=== PATIENT | female | born 1990 | race Caucasian/White ===

== ENCOUNTER → 2018-12-10 | Outpatient (CLI) | payer OTHER ==
[~2018-12-10] MED LIST: PRENTAB9 PO; VITA500C24 PO
--- NOTE | 2018-12-11 02:56 | REP ---
Clinical: Anatomical evaluation. Comparison: None . Findings: Examination demonstrates a single live intrauterine in breech presentation. motion is identified by technologist. Placenta is noted anterior and grade zero without evidence for placenta previa or abruption. Amniotic fluid volume is normal. Cervix measures 3.2 cm in length and appears closed. No evidence for nuchal cord. Gestational age by LMP 19 weeks 1 day with ESTEVAN 05/05/2019 . Gestational age by current measurements 19 weeks 0-day with ESTEVAN 05/06/2019 . FHR equals 139 beats per minute. BPD 4.3 cm 18 weeks 6 days HC 16.0 cm 18 weeks 6 days AC 14.1 cm 19 weeks 3 days FL 2.8 cm it is 18 weeks 4 days HL 2.8 cm 19 weeks 1 day HC/AC ratio 1.14 Estimated weight 270 grams ( 44th percentile). Anatomical assessment demonstrates normal structures including cranium, choroid plexus, cavum, cerebellum/posterior fossa, facial features, lungs, four-chamber heart/left ventricular outflow tract, diaphragm, stomach, cord insertion/three-vessel cord, kidneys/bladder, spine, and extremities. Impression: Single live intrauterine in breech presentation demonstrating appropriate interval growth. While no gross abnormalities are identified, evaluation of the right cardiac ventricular outflow tract is somewhat limited. Electronically Signed by Leroy Munoz MD 12/11/2018 02:47 A
== END ==
LOC: MERGE 14:09 → M RAD 14:09
PROVIDERS: ATTEND Advanced Practice Midwife
DX: Z34.82 Encounter for supervision of other normal pregnancy, second trimester (principal); Z3A.19 19 weeks gestation of pregnancy

== ENCOUNTER → 2019-04-30 | Outpatient (CLI) | payer BC, OTHER ==
[2019-04-30 13:42] LABS: APPEARANCE, URINE CLOUDY (CLEAR); BACTERIA, URINE AUTO 2+ (NEGATIVE); BILIRUBIN, URINE AUTO NEGATIVE (NEGATIVE); BLOOD, URINE BLOOD NEGATIVE (NEGATIVE); COLOR, URINE YELLOW (YELLOW); GLUCOSE, URINE (UA) AUTO NEGATIVE (NEGATIVE); KETONE, URINE AUTO NEGATIVE (NEGATIVE); LEUKOCYTE ESTERASE, URINE AUTO TRACE (NEGATIVE); MUCUS, URINE SMALL (NEGATIVE); NITRITE, URINE AUTO NEGATIVE (NEGATIVE); PROTEIN, URINE AUTO 1+ mg/dL (NEGATIVE); RBC, URINE AUTO 1 /HPF (0-3); SPECIFIC GRAVITY URINE AUTO 1.018 (1.002-1.035); SQUAMOUS EPITHELIAL CELL UR AU 7 /HPF (0-6); UROBILINOGEN, URINE AUTO 0.2 mg/dL (0.0-2.0); WBC, URINE AUTO 7 /HPF (0-3)
== END ==
LOC: M LRY 09:18
DX: Z34.03 Encounter for supervision of normal first pregnancy, third trimester (principal); R10.9 Unspecified abdominal pain; Z3A.00 Weeks of gestation of pregnancy not specified

== ENCOUNTER 2019-05-10 11:54 | Inpatient (IN) | payer OTHER ==
[~2019-05-10] VITALS: Ht 154.9 cm; Wt 74.6 kg
[2019-05-10] VITALS (31 sets, daily range): BP systolic 85–138; BP diastolic 50–89
[2019-05-10] MEDS ORDERED: LACTATED RINGER'S 1000 ML IV STA (12:21)
[2019-05-10] MEDS ORDERED: PENICILLIN G POTASSIUM IV 5 MU in D5W MINI-BAG PLUS 100 ML IV STA (12:21)
[2019-05-10] MEDS ORDERED: VITA500C24 PO (12:28)
[2019-05-10] MEDS ORDERED: PRENTAB9 PO (12:28)
[2019-05-10] MEDS ORDERED: OXYTOCIN DRIP 30 UNITS in IV 1 EA IV SCH (12:30)
[2019-05-10 12:47] LABS: HEMATOCRIT 39.5 % (36.0-47.0); HEMOGLOBIN 12.6 g/dl (12.0-15.5); MEAN CORPUSCULAR HGB CONC 31.9 g/dl (32.0-36.5); PLATELET COUNT, AUTOMATED 139 10^3/uL (150-450); RED BLOOD COUNT 4.34 10^6/uL (4.00-5.40); WHITE BLOOD COUNT 6.2 10^3/uL (4.0-10.0)
[2019-05-10] MEDS: LR 1,000 ML IV SCH ×2 (12:58→16:24)
--- NOTE | 2019-05-10 13:53 | HPEPDOC ---
Obstetrical History & Physical General Date of Admission May 10, 2019 at 11:54 Primary Care Physician: REEMA CHAVIS CNM History of Present Illness Patient is a 28-year-old female who is a at 40.5 weeks with an ESTEVAN of 05/05/19 based off of her LMP and consistent with her first trimester ultrasound. She initiated care in her first trimester with [facility]WP. Her has been uncomplicated. She desires an elective IOL due to latent labor. She rpeorts regular contractions. She denies vaginal bleeding or leaking of fluid. She reports active movement. 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 history Past Medical History Surgical History: Appendectomy, [place] teeth, Other (tympanostomy, umbilical hernia repair) Family History Significant Family History: Cancer (lung cancer and prostate cancer), COPD, Other (arthritis and IBS) Social History Marital Status: Family situation: Spouse/partner home Psychosocial History: Anxiety * Smoker: non-smoker Alcohol: Denies Drugs: denies Abuse Violence Screening Have you been hit/kicked/slapp: No Have you been sexually assault: No Allergies Coded Allergies: nystatin (Verified Allergy, Unknown, 05/10/19) amoxicillin (Verified Adverse Reaction, Mild, DIARRHEA, 05/10/19) clavulanic acid (Verified Adverse Reaction, Mild, DIARRHEA, 05/10/19) Medications Scheduled Ascorbic Acid (Vitamin C) 500 Mg Capsule, 2 CAP PO DAILY No.137/Iron/Folic Acd ( Vitamin Tablet) 1 Each Tablet, 1 TAB PO DAILY Physical Examination Physical Examination GENERAL: Alert and oriented times three. BREAST: . ABDOMEN: Gravid and non-tender to touch. FETUS: Is vertex (VTX) by sterile vaginal examination (SVE), fetus is vertex (VTX) by Hitesh. HEART RATE: Regular rate and rhythm. LUNGS: Clear to auscultation (CTA). EXTREMITIES: No edema. No clonus. Deep tendon reflexes (DTRs) + 2. Vital Signs/I&O Vital Signs Label Value Date Time Patient Temperature 97.9 degrees F 05/10/19 1210 Temperature Source Temporal 05/10/19 1210 Pulse 72 05/10/19 1210 Respiratory Rate 16 bpm 05/10/19 1210 Blood Pressure Assessment 132/78 (96) 05/10/19 1210 Source Automatic Cuff (NIBP) Laboratory Data [facility] Laboratory Tests 2 05/10/19 12:09: Serology Scanned Report Hepatitis B Testing 05/10/19 12:36: Nucleated Red Blood Cells % (auto) 0.0 CBC/BMP Laboratory Tests 05/10/19 12:36 Urine Culture: No Growth Pertinent Laboratoy Data Blood Type: O+ RBC Antibody Screen: Negative HIV: Negative Hepatitis B: Negative Hepatitis C: Negative Rapid Plasma Reagin: Nonreactive Rubella: Immune Chlamydia/Gonorrhea: Negative Group B Streptococcus: Positive Glucose Tolerance Test: 87 Anatomy Ultrasound Ultrasound Date: Jan 21, 2019 Placenta Location: Posterior Normal Anatomy: Yes Placenta Previa: No Vaginal Examination Dilation: 1cm Effacement: 90% Station: 0 Cervical Consistency: Soft Cervical Position: Anterior Presentation: Cephalic presentation Position: Vertex (occiput) Assessment Heart Rate (FHR): 130 Variability: Moderate Accelerations: Positive Decelerations: None Tocometer Contractions: Yes Frequency: regular, other (2-7 minutes) Strength: palpated as moderate Multi-drug resistant Organism: No history of MDRO Assessment/Plan Assessment IUP at 40.5 weeks GBS positive Category I FHR tracing latent labor Plan Admit to labor and delivery. OOB ad mariya. Diet: clears. Group B Streptococcus (GBS) positive. Start antibiotics. Labs and intravenous (IV) per unit protocol. Counseled on Pitocin and dalton bulb for induction of labor. Lactated Ringers (LR): at 125 cc/hr and a Bolus 800 mL prior to epidural. Anticipate cervical change. C-S as appropriate. REEMA CHAVIS CNM May 10, 2019 13:53
[2019-05-10] MEDS: PENICILLIN G POTASSIUM IV 2.5 MU in IV 1 EA IV SCH ×2 (16:34→21:20)
[2019-05-10] MEDS ORDERED: FENTANYL 2MCG/ML ROPIVACAINE 0.2% IN 0.9% NACL 100ML IVBAG As Ordered ONE (16:38)
[2019-05-10] MEDS ORDERED: NALOXONE INJ 0.4 MG/1 ML VIAL (J2310) IV PRN (17:00)
[2019-05-10] MEDS ORDERED: EPIDURAL COMMENT XX SCH (17:00)
[2019-05-10] MEDS ORDERED: REFRIGERATOR IV KEYS XX PRN (17:00)
[2019-05-10] MEDS ORDERED: ONDANSETRON 4MG/2ML VIAL (J2405) IV PRN (17:00)
[2019-05-10] MEDS ORDERED: ePHEDrine SULFATE 25 MG/5 ML(5MG/ML) SYRINGE IV PRN (17:00)
[2019-05-10] MEDS ORDERED: diphenhydrAMINE INJ 50MG/ML VIAL (J1200) IV PRN (17:00)
[2019-05-10] MEDS ORDERED: LACTATED RINGER'S 1000 ML IV PRN (17:00)
[2019-05-10] MEDS ORDERED: EPIDURAL/PCA KEYS XX PRN (17:00)
[2019-05-10] MEDS: FENTANYL/ROPIVACAINE/NACL BAG 100 ML EPIDURAL SCH ×2 (17:12→23:32)
--- NOTE | 2019-05-10 18:49 | IPNPDOC ---
Obstetrical Progress Note Date of Service May 10, 2019 Subjective Patient reports she is comfortable with her epidural. Objective Vital Signs Date Time Temp Pulse Resp B/P (MAP) Pulse Ox O2 Delivery O2 Flow Rate FiO2 05/10/19 16:24 98.0 96 18 113/58 (76) Assessment Heart Rate (FHR): 140 Variability: Moderate Accelerations: Positive Decelerations: None Heart Rate Tracing: Category I Tocometer Contractions: Yes Frequency: regular, other (2-4 minutes) Sterile Vaginal Examination Dilation: 4 cm Effacement (%): 90% Station: 0 Cervical Consistency: Soft (bulging bag of fluid) Cervical Position: Anterior Postion/Presentation: Cephalic presentation Assessment and Plan Age: 28 : 1 Term: 0 Pre-term: 0 Abortions: 0 Livin EGA at Admission: 40.5 Status: Reassuring Group B Streptococcus: Positive Anticipate: Vaginal Delivery Additional Comments Ballard bulb is out. IV Pitocin is at 8 mu/min. Consider AROM in future. REEMA CHAVIS CNM May 10, 2019 18:48
--- NOTE | 2019-05-10 23:23 | IPNPDOC ---
Obstetrical Progress Note Date of Service May 10, 2019 Subjective Patient reports increased pressure. Objective Vital Signs Date Time Temp Pulse Resp B/P (MAP) Pulse Ox O2 Delivery O2 Flow Rate FiO2 05/10/19 22:25 77 129/64 (85) 05/10/19 16:24 98.0 18 Assessment Heart Rate (FHR): 140 Variability: Minimal to moderate Accelerations: Positive Decelerations: None Heart Rate Tracing: Category I Tocometer Contractions: Yes Frequency: regular Sterile Vaginal Examination Dilation: 9 cm Effacement (%): 100% Station: 0 Postion/Presentation: Cephalic presentation Assessment and Plan Age: 28 : 1 Term: 0 Pre-term: 0 Abortions: 0 Livin EGA at Admission: 40.5 Status: Reassuring Group B Streptococcus: Positive Anticipate: Vaginal Delivery Additional Comments IV Pitocin decreased to 4 mu/min. Patient spontaneously ruptured clear fluids at 2235. REEMA CHAVIS CNM May 10, 2019 23:23
[2019-05-11] VITALS (16 sets, daily range): BP systolic 107–128; BP diastolic 55–84
--- NOTE | 2019-05-11 04:01 | IPNPDOC ---
Obstetrical Progress Note Date of Service May 11, 2019 Subjective Patient is pushing well with contractions but reports she is getting very tired. She has been pushing for almost 3.5 hours. Objective Vital Signs Date Time Temp Pulse Resp B/P (MAP) Pulse Ox O2 Delivery O2 Flow Rate FiO2 05/10/19 22:25 77 129/64 (85) 05/10/19 16:24 98.0 18 Assessment Heart Rate (FHR): 150 Variability: Moderate Accelerations: None Decelerations: Variable (with pushing) Tocometer Contractions: Yes Frequency: regular Assessment and Plan Age: 28 : 1 Term: 0 Pre-term: 1 Abortions: 0 Livin Weeks & Days 40.6 weeks Status: Reassuring Group B Streptococcus: Positive Anticipate: Vaginal Delivery Additional Comments Dr. Cooney called to come in for assistance due to prolonged pushing. Moderate amount of caput with pushing. Meconium noted with pushing. Dr. Cooney is aware and is on his way into L&D. REEMA CHAVIS CNM May 11, 2019 04:01
[2019-05-11 05:23] LABS: CORD GAS ABE V -5.6; CORD GAS HCO3 V 19.3 MEQ/L; CORD GAS O2 SAT V 81.6 %; CORD GAS PCO2 V 36.2 mmHg; CORD GAS PH V 7.345 UNITS; CORD GAS PO2 V 42.1 mmHg; CORD GAS SBC V 19.5 MEQ/L; CORD GAS TCO2 V 20.4 MEQ/L
[2019-05-11 05:26] LABS: CORD GAS ABE A -6.7; CORD GAS HCO3 A 20.4 MEQ/L; CORD GAS O2 SAT A 89.8 %; CORD GAS PCO2 A 46.3 mmHg; CORD GAS PH A 7.261 UNITS; CORD GAS PO2 A 53.2 mmHg; CORD GAS SBC A 18.9 MEQ/L; CORD GAS TCO2 A 21.8 MEQ/L
[2019-05-11] MEDS ORDERED: LR 1,000 ML IV SCH (05:32)
[2019-05-11] MEDS ORDERED: OXYTOCIN DRIP 30 UNITS in IV 1 EA IV SCH (05:32)
[2019-05-11] MEDS ORDERED: ACETAMINOPHEN TAB 650MG DOSE (2X325MG) PO PRN (05:45)
[2019-05-11] MEDS ORDERED: MEASLES,MUMPS,RUBELLA VACCINE INJ (MMR-II) (90707) SC SCH (05:45)
[2019-05-11] MEDS ORDERED: PROMETHAZINE 25 MG TAB PO PRN (05:45)
[2019-05-11] MEDS ORDERED: ACETAMINOPHEN 500 MG TAB PO PRN (05:45)
[2019-05-11] MEDS ORDERED: RHOGAM 300 MCG (1500 IU) INJ (J2790) IM SCH (05:45)
[2019-05-11] MEDS ORDERED: IBUPROFEN 600 MG TAB PO PRN (05:45)
[2019-05-11] MEDS ORDERED: DOCUSATE SODIUM 100 MG CAP PO PRN (05:45)
[2019-05-11] MEDS ORDERED: ONDANSETRON 4MG/2ML VIAL (J2405) IV PRN (05:45)
[2019-05-11] MEDS ORDERED: DIBUCAINE 1% OINTMENT 30GM TOP PRN (05:45)
[2019-05-11] MEDS: IBUPROFEN 800 MG TAB PO PRN (08:06)
[2019-05-11] MEDS: PRENATAL VITAMINS CHEWABLE TABLET PO SCH (08:06)
[2019-05-12 06:00] VITALS: BP 109/55
[2019-05-12 06:51] LABS: HEMATOCRIT 33.1 % (36.0-47.0); MEAN CORPUSCULAR HEMOGLOBIN 29.3 pg (27.0-33.0); MEAN CORPUSCULAR HGB CONC 31.4 g/dl (32.0-36.5); MEAN CORPUSCULAR VOLUME 93.2 fl (80.0-96.0); PLATELET COUNT, AUTOMATED 125 10^3/uL (150-450); RED BLOOD COUNT 3.55 10^6/uL (4.00-5.40)
[2019-05-12 06:56] LABS: HEMOGLOBIN 10.4 g/dl (12.0-15.5)
[2019-05-12] MEDS: IBUPROFEN 800 MG TAB PO PRN ×2 (08:14→18:46)
[2019-05-12] MEDS ORDERED: INFLUENZA QUADRIVALENT PF VACCINE 0.5ML SYRINGE (90686) IM ONE (09:00)
[2019-05-12] MEDS: PRENATAL VITAMINS CHEWABLE TABLET PO SCH (15:23)
[2019-05-12 18:03] VITALS: BP 112/63
[2019-05-13 06:00] VITALS: BP 122/80
[2019-05-13] MEDS ORDERED: INFLUENZA QUADRIVALENT PF VACCINE 0.5ML SYRINGE (90686) IM ONE (09:00)
[2019-05-13] MEDS: IBUPROFEN 800 MG TAB PO PRN (09:15)
[2019-05-13] MEDS: PRENATAL VITAMINS CHEWABLE TABLET PO SCH (09:15)
== END 2019-05-13 13:40 | disposition home or self-care (01) | DRG 560 ==
LOC: M LDI 11:54 → M OBS 05-11 10:19
PROVIDERS: ADMIT Advanced Practice Midwife; ATTEND Obstetrics & Gynecology
PROC: 3E033VJ Introduction of Other Hormone into Peripheral Vein, Percutaneous Approach (ICD-10-PCS; 2019-05-10)
PROC: 10E0XZZ Delivery of Products of Conception, External Approach (ICD-10-PCS; principal; 2019-05-11)
PROC: 0KQM0ZZ Repair Perineum Muscle, Open Approach (ICD-10-PCS; 2019-05-11)
DX: O48.0 Post-term pregnancy (principal); O99.824 Streptococcus B carrier state complicating childbirth; Z3A.40 40 weeks gestation of pregnancy; Z88.0 Allergy status to penicillin; Z88.8 Allergy status to other drugs, medicaments and biological substances; Z37.0 Single live birth; O70.1 Second degree perineal laceration during delivery

== ENCOUNTER → 2020-03-22 | Outpatient (REF) | payer OTHER | LOC: M SFHCWAGY 17:12 | PROVIDERS: ATTEND Advanced Practice Midwife | DX: Z12.4 Encounter for screening for malignant neoplasm of cervix (principal) ==

== ENCOUNTER → 2022-09-05 | Outpatient (CLI) | payer BC ==
[2022-09-05 16:45] LABS: ALBUMIN 4.3 G/DL (3.2-5.2); ALKALINE PHOSPHATASE 46 U/L (46-116); ALT/SGPT 20 U/L (7.0-40); AST/SGOT 14 U/L (<34); BILIRUBIN,TOTAL 1.1 MG/DL (0.3-1.2); BLOOD UREA NITROGEN 11 MG/DL (9-23); CALCIUM LEVEL 9.2 MG/DL (8.5-10.1); CARBON DIOXIDE LEVEL 28 MMOL/L (20-31); CHLORIDE LEVEL 105 MMOL/L (98-107); CREATININE FOR GFR 0.65 MG/DL (0.55-1.30); FREE T4 0.86 NG/DL (0.89-1.76); GLOMERULAR FILTRATION RATE > 60.0 (>60); GLUCOSE, FASTING 89 MG/DL (60-100); HCG, SERUM QUANTITATIVE < 2.6 MIU/ML (<4.2); SODIUM LEVEL 139 MMOL/L (136-145); THYROID STIMULATING HORMONE 1.581 uIU/ML (0.55-4.78)
[2022-09-05 17:06] LABS: HEMOGLOBIN A1c 5.1 % (4.0-6.0)
[2022-09-09 23:09] LABS: 17 HYDROXY PROGESTERONE 205 ng/dL (.); SEX HORMONE BINDING GLOBULIN 66.8 nmol/L (24.6-122.0); TESTOSTERONE FREE (DIRECT) 1.5 pg/mL (0.0-4.2)
== END ==
LOC: M PLALAB 13:57
PROVIDERS: ATTEND Nurse Practitioner Family
DX: N92.6 Irregular menstruation, unspecified (principal)

== ENCOUNTER → 2023-02-27 | Outpatient (REF) | payer BC | LOC: M PLALAB 12:55 | PROVIDERS: ATTEND Advanced Practice Midwife | DX: Z12.4 Encounter for screening for malignant neoplasm of cervix (principal) | CPT/HCPCS: 87624; G0123 ==

== ENCOUNTER → 2023-03-12 | Outpatient (CLI) | payer BC | LOC: M WHC 13:26 | PROVIDERS: ATTEND Advanced Practice Midwife | DX: N64.52 Nipple discharge (principal); N64.4 Mastodynia ==